=== PATIENT | female | born 1965 | race African-American/Black ===

== ENCOUNTER 2017-07-30 14:49 | Emergency (ER) | payer OTHER ==
[~2017-07-30] VITALS: Ht 175.3 cm; Wt 99.8 kg
[~2017-07-30 14:49] MED LIST: ADIPEX-P37.5 M1 PO; AMBEREN; IBUPROFEN 600600 M1 PO; MECLIZINE HCL12.5 MG PO; NORCO 5-325 TA1 EACH PO; PENICILLIN V P500 MG PO; TRAMADOL 50 MG50 MG PO; VITAMIN D1000 UNI1 PO
[2017-07-30 16:02] VITALS: BP 131/73
== END 2017-07-30 16:02 | disposition home or self-care (01) ==
LOC: ER 14:49
DX: H61.21 Impacted cerumen, right ear (principal); Z98.890 Other specified postprocedural states